=== PATIENT | male | born 1975 | race Caucasian/White ===

== ENCOUNTER 2022-02-16 09:49 | Emergency (ER) | payer OTHER, SELFPAY ==
[2022-02-16 10:01] VITALS: BP 152/98; PULSE 103; RESP 20; TEMP 36.4; O2SAT 99; BMI 27.9
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
[2022-02-16 11:45] LABS: MANUAL DIFF FLAG NO
[2022-02-16 11:47] LABS: Amphetamine Screen Urine Not Detected (Not Detect); Barbiturates, Urine Not Detected (Not Detect); Benzodiazepines Screen Urine Not Detected (Not Detect); Cannabinoid Screen Urine POSITIVE (Not Detect); Cocaine Screen Urine Not Detected (Not Detect); Fentanyl, urine Not Detected (Not Detect); Opiate Screen Urine Not Detected (Not Detect); Phencyclidine Screen Urine Not Detected (Not Detect)
[2022-02-16 11:51] LABS: COVID-19 Test Negative (Negative); IDNOW Serial# 16C4AD1C
[2022-02-16 11:51] LABS: Basophils Percent Auto 0.6 % (0-2); Eosinophils Absolute Auto 0.1 X10*3/uL (0.0-0.4); Eosinophils Percent Auto 0.8 % (0-4); Hematocrit 41.7 % (42.0-52.0); Hemoglobin 14.3 g/dl (14.0-18.0); Imm Gran Abs Auto 0.01 X10*3/uL (0.00-0.03); Imm Gran Pct Auto 0.1 % (0.0-0.4); Lymphocytes Absolute Auto 0.6 X10*3/uL (1.2-4.9); Lymphocytes Percent Auto 8.1 % (20-40); Mean Corpuscular HGB Conc 34.3 g/dl (31.0-36.0); Mean Corpuscular Hemoglobin 32.1 pg (27.0-33.0); Mean Corpuscular Volume 93.7 fL (80.0-98.0); Monocytes Absolute Auto 0.3 X10*3/uL (0.1-1.2); Monocytes Percent Auto 4.1 % (2-11); Neutrophils Absolute Auto 6.2 x10*3/uL (2.0-8.3); Neutrophils Percent Auto 86.3 % (45-73); Platelet Count 231 X10*3/uL (160-400); Red Blood Count 4.45 X10*6/uL (4.60-5.80); Red Cell Distribution Width 12.4 % (11.0-16.0); White Blood Count 7.2 X10*3/uL (4.8-10.8)
[2022-02-16 12:01] LABS: Ethanol < 10 mg/dL
[2022-02-16 12:04] LABS: Alanine Aminotransferase 16 U/L (0-40); Albumin Level 4.6 g/dL (3.5-5.0); Alkaline Phosphatase 74 U/L (39-117); Anion Gap 13 (12-20); Aspartate Amino Transferase 14 U/L (5-37); Bilirubin Total 0.8 mg/dL (0.0-1.0); Blood Urea Nitrogen 14 mg/dL (9-16); Carbon Dioxide 27 mmol/L (22-29); Chloride 102 mmol/L (96-108); Creatinine Clr Calc Pharmacy 103.3; Estimated Glomerular Filt Rate > 60; Glucose Random 133 mg/dL (60-115); Potassium 4.1 mmol/L (3.3-5.1); Sodium 138 mmol/L (135-145); Total Protein 7.4 g/dL (6.5-8.0)
[2022-02-16 12:07] LABS: Influenza A Negative (Negative); Influenza B2 Negative (Negative)
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
== END 2022-02-16 13:59 | disposition home or self-care (01) ==
PROVIDERS: Emergency Provider Emergency Medicine Emergency Medical Services
DX: F33.1 Major depressive disorder, recurrent, moderate (principal); F41.1 Generalized anxiety disorder; F43.0 Acute stress reaction; R45.851 Suicidal ideations; Z20.822 Contact with and (suspected) exposure to COVID-19; Z79.899 Other long term (current) drug therapy
CPT/HCPCS: 80053; 80307; 82077; 85025; 87502; 87635; 99284

== ENCOUNTER 2022-03-04 06:21 | Outpatient (REF) | payer OTHER, SELFPAY ==
--- NOTE | 2022-03-04 06:29 | ECG_ITS ---
Test Reason : medcations ck rhythm Blood Pressure : / mmHG Vent. Rate : 068 BPM Atrial Rate : 068 BPM P-R Int : 194 ms QRS Dur : 102 ms QT Int : 384 ms P-R-T Axes : 054 035 035 degrees QTc Int : 408 ms Normal sinus rhythm with sinus arrhythmia Normal ECG No previous ECGs available Referred By: Komal Fulton Electronically Signed By:JOSE ANGEL QUINTANA MD
[2022-03-04 07:45] LABS: Alanine Aminotransferase 19 U/L (0-40); Albumin Level 4.4 g/dL (3.5-5.0); Alkaline Phosphatase 72 U/L (39-117); Anion Gap 11 (12-20); Aspartate Amino Transferase 15 U/L (5-37); Bilirubin Total 0.5 mg/dL (0.0-1.0); Blood Urea Nitrogen 15 mg/dL (9-16); Calcium 10.3 mg/dL (8.4-10.2); Carbon Dioxide 28 mmol/L (22-29); Chloride 103 mmol/L (96-108); Estimated Glomerular Filt Rate > 60; Glucose Random 96 mg/dL (60-115); Potassium 4.7 mmol/L (3.3-5.1); Sodium 137 mmol/L (135-145)
[2022-03-04 08:06] LABS: Free T4 (Free Thyroxine) 0.89 ng/dL (0.71-1.85); Thyroid Stimulating Hormone 3.72 uIU/mL (0.32-4.0)
== END 2022-03-04 06:22 | disposition home or self-care (01) ==
LOC: HO.LAB 06:21
PROVIDERS: Visit Provider Nurse Practitioner Psychiatric/Mental Health
DX: F33.2 Major depressive disorder, recurrent severe without psychotic features (principal); F43.10 Post-traumatic stress disorder, unspecified; Z79.899 Other long term (current) drug therapy
CPT/HCPCS: 36415; 80053; 80178; 84439; 84443; 93005

== ENCOUNTER 2022-03-25 11:00 | Outpatient (RCR) | payer OTHER, SELFPAY ==
[2022-02-18 08:32] VITALS: BMI 27.9
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
--- NOTE | 2022-02-18 16:11 | PC.NURSE ---
Case opened in treatment team.
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
--- NOTE | 2022-02-19 15:45 | PC.NURSE ---
I spoke to pt and reviewed treatment plan. Discussed the need for a med provider. Pt has a therapist in private practice referred from [facility]. But he said he also had an intake at [facility] in [place] for a therapist. I agreed to put in a referral to [facility] for pt to obtain a med provider. He requested a letter emailed to him stating he has started the program for his work. I completed this and emailed it to him.
--- NOTE | 2022-02-22 11:24 | P.EN_ITS ---
Event Note Date of Service: 02/22/22 Event Note: completed [facility] paperwork, with start date 02/15/22, end date 03/12/22.
--- NOTE | 2022-02-22 11:24 | PM.EVENT ---
Event Note Date of Service: 02/22/22 Event Note: completed [facility] paperwork, with start date 02/15/22, end date 03/12/22.
--- NOTE | 2022-02-22 15:18 | P.PNPSP_ITS ---
Subjective Subjective Date of Service: 02/22/22 Reason For Visit: anxiety,depression Guardianship: No Medical Problems Affecting Mental Status: No Interim History: Reports no side effects from quetiapine or Lamictal. Continues with mood instability. Reports improved sleep. Denies SI/HI/SIB, no safety concerns. Willing to try increase in medication. Medication Compliance: Yes Side effects from medications: No Attending Groups: Yes Review of Systems Acute medical concerns: No Medical Review of Systems: unchanged Review of Systems Review of Systems Yes all other systems are reviewed and are negative Constitutional: Reports no additional constitutional complaints Mental Status Exam Mental Status Exam Narrative: NAD. No SI/HI/SIB. Continues with hypomanic presentation, including rapid pressured speech, distractibility, flight of ideas. Patient Appearance: Appropriate Patient Orientation: Person, Place, Time and Situation Level of Consciousness: Appropriate Patient Behavior: Appropriate, Cooperative and Good Eye Contact Mood Description: Depressed and Anxious Affect Description: Anxious and Expansive Patient Cognition Impaired: No Ability to Follow Directions: Good Speech Pattern: Clear, Coherent, Rapid, Excessive and Pressured Memory Description: Intact Hallucinations: None Delusions: Not Present Thought Process: Racing and Distracted Thought Content: positive for Intact, positive for Racing and positive for Tangential Depressive Symptoms: Increased Anxiety, Crying Spells, Loss of Int. in Activity, Feelings of Worthlessness, Hopelessness and Difficulty Concentrating Judgement: Fair Diagnostics Vital Signs (24Hr): BMI result Body Mass Index 27.9 Assessment & Plan Assessment & Plan (1) Major depressive disorder, recurrent severe without psychotic features: Status: Acute Code(s): F33.2 - Major depressive disorder, recurrent severe without psychotic features Assessment and Plan: Reports no side effects from quetiapine or Lamictal. Continues with mood instability. Reports improved sleep. Denies SI/HI/SIB, no safety concerns. States that he did not drink over the weekend, and did not craving alcohol. Does not see it as a problem at this time. Willing to try increase in medication. Asked for increase in Lamictal. It was explained that in order to prove event side effects, including Jr Jose Martin syndrome, Lamictal requires a slow titration upwards. Review titration schedule with him, he stated that he understood. Discussed increasing quetiapine at this time. He is willing to do this. (2) Post-traumatic stress disorder, unspecified: Status: Acute Code(s): F43.10 - Post-traumatic stress disorder, unspecified Plan 1. Continue with current [facility] plan of care. 2. Increase quetiapine to 50 mg daily at bedtime. 3. Follow-up as per protocol. Patient educated on: diagnosis, medication risk/benefits and therapeutic strategies Informed Consent: understands Reason for contiued partial hosp. stay Substantial Risk for: harm to self, inability to function, rapid decompensation and med/psych decompensation Certification I certify that partial hospital treatment is medically necessary due to the symptoms and problems resulting from the patient's mental illness and the failure to treat the patient at the partial hospital level of care would likely result in the patient requiring inpatient psychiatric care which could not be prevented at a less intensive level of care. I spent minutes with the patient and/or on the patient floor today, greater than?50% of which was spent counseling/coordinating care. Discharge Plan Discharge Attending provider: Robin Santana Medications: New lamotrigine [Lamictal] 25 mg tablet 25 mg PO DAILY 14 Days Qty: 14 0RF quetiapine 50 mg tablet 50 mg PO BEDTIME 14 Days Qty: 14 0RF Telehealth Telehealth Location of provider rendering services: practice address Location of patient: address on file Patient Identification confirmed using: Name, : Yes Telehealth method: voice only Patient verbally consented to treatment: Yes Patient verbally consented to billing insurance company: Yes Patient informed of any privacy concerns related to visit: Yes Minutes spent on Phone/Video with Pt.: 15
--- NOTE | 2022-02-25 11:39 | PC.NURSE ---
Marcel called stating he not feeling well today, reports feeling anxious and has been crying. Reports he thinks he is starting to get a sore throat related to the pollen outside. Patient wanted to increase his medication. Spoke to Komal Quiroz NP [facility] prescriber who stated patient could increase Seroquel to 75 mg at HS and she will check in with him on Tuesday. Patient agreed with the plan.
--- NOTE | 2022-02-26 14:45 | HO.PHPPROGNO ---
Subjective Subjective Date of Service: 02/26/22 Reason For Visit: anxiety,depression Guardianship: No Medical Problems Affecting Mental Status: No Interim History: Describes mood as I'm feeling worse, like I got to be doing something . Describes restlessness, feeling ?kind of down, but at the same time like I am [place] . Poor sleep, approximately 3 hours per night. Tearful, labile mood. No SI/HI/SIB, no safety concern. Medication Compliance: Yes Side effects from medications: No Attending Groups: Yes Review of Systems Acute medical concerns: No Medical Review of Systems: unchanged Review of Systems Review of Systems Yes all other systems are reviewed and are negative Constitutional: Reports no additional constitutional complaints Mental Status Exam Mental Status Exam Narrative: NAD. No SI/HI/SIB. Continues with hypomanic presentation, including rapid pressured speech, distractibility, flight of ideas. Patient Appearance: Appropriate Patient Orientation: Person, Place, Time and Situation Level of Consciousness: Appropriate Patient Behavior: Appropriate, Cooperative and Good Eye Contact Mood Description: Depressed, Anxious, Labile and Expansive Affect Description: Depressed, Anxious, Labile and Expansive Patient Cognition Impaired: No Ability to Follow Directions: Good Speech Pattern: Clear, Coherent, Rapid, Excessive and Pressured Memory Description: Intact Hallucinations: None Delusions: Not Present Thought Process: Racing and Distracted Thought Content: positive for Intact, positive for Racing, positive for Circumstantial and positive for Tangential Depressive Symptoms: Increased Anxiety, Insomnia, Increased Irritability, Difficulty Sleeping, Crying Spells, Loss of Int. in Activity, Hopelessness and Difficulty Concentrating Abnormal Motor Activity Signs and Symptoms: Restlessness Judgement: Fair Diagnostics Vital Signs (24Hr): BMI result Body Mass Index 27.9 Assessment & Plan Assessment & Plan (1) Major depressive disorder, recurrent severe without psychotic features: Status: Acute Code(s): F33.2 - Major depressive disorder, recurrent severe without psychotic features Assessment and Plan: Patient presents with labile affect, describes feeling ?worse?. Describes restlessness, mood lability. Tearful during encounter. No SI/HI, no safety concern. Patient has information including crisis number to call if begins to feel unsafe in any way. Discussed current medication regimen. Discussed possibility of switching to lithium. Discussion included indications, risks, both adverse effects serious and common, benefits, alternatives to treatment recommendations, and alternatives of his illness. He demonstrated in understanding, asked appropriate questions. He stated at this time he would like to try increase in Seroquel. He will consider as witch from lamictal to lithium if no improvement with increase Seroquel. He is tolerating titration of Lamictal well. (2) Post-traumatic stress disorder, unspecified: Status: Acute Code(s): F43.10 - Post-traumatic stress disorder, unspecified Plan 1. Increase Seroquel to 100 mg at bedtime scheduled. 2. Add Seroquel 25 mg b.i.d. p.r.n.. 3. Continue with Lamictal titration as scheduled. 4. Continue with current [facility] plan of care. 5. Follow-up as per protocol. Patient educated on: diagnosis, medication risk/benefits and therapeutic strategies Informed Consent: understands Reason for contiued partial hosp. stay Substantial Risk for: harm to self, inability to function, rapid decompensation and med/psych decompensation Certification I certify that partial hospital treatment is medically necessary due to the symptoms and problems resulting from the patient's mental illness and the failure to treat the patient at the partial hospital level of care would likely result in the patient requiring inpatient psychiatric care which could not be prevented at a less intensive level of care. I spent minutes with the patient and/or on the patient floor today, greater than?50% of which was spent counseling/coordinating care. Discharge Plan Discharge Attending provider: Robin Santana Medications: New lamotrigine [Lamictal] 25 mg tablet 25 mg PO DAILY 14 Days Qty: 14 0RF quetiapine [Seroquel] 100 mg tablet 100 mg PO BEDTIME Qty: 7 0RF quetiapine [Seroquel] 25 mg tablet 25 mg PO BID PRN (Reason: anxiety) Qty: 14 0RF Telehealth Telehealth Location of provider rendering services: practice address Location of patient: address on file Patient Identification confirmed using: Name, : Yes Telehealth method: video Patient verbally consented to treatment: Yes Patient verbally consented to billing insurance company: Yes Patient informed of any privacy concerns related to visit: Yes Minutes spent on Phone/Video with Pt.: 15
--- NOTE | 2022-03-02 09:43 | P.PNPSP_ITS ---
Subjective Subjective Date of Service: 03/02/22 Reason For Visit: anxiety,depression Guardianship: No Medical Problems Affecting Mental Status: No Interim History: Reports increased mood lability, although finding seroquel helpful. No SI reported. Asking for increased frequency of prn quetiapine, and considering starting lithium. Medication Compliance: Yes Side effects from medications: No Attending Groups: Yes Review of Systems Acute medical concerns: No Medical Review of Systems: unchanged Review of Systems Review of Systems Yes all other systems are reviewed and are negative Constitutional: Reports no additional constitutional complaints Mental Status Exam Mental Status Exam Narrative: NAD. No SI/HI/SIB. Continues with mood lability, tearful. Patient Appearance: Appropriate Patient Orientation: Person, Place, Time and Situation Level of Consciousness: Appropriate Patient Behavior: Appropriate, Cooperative and Good Eye Contact Mood Description: Depressed, Anxious and Labile Affect Description: Depressed, Anxious and Labile Patient Cognition Impaired: No Ability to Follow Directions: Good Speech Pattern: Clear, Coherent, Rapid and Excessive Memory Description: Intact Hallucinations: None Delusions: Not Present Thought Process: Racing and Distracted Thought Content: positive for Intact, positive for Racing and positive for Circumstantial Depressive Symptoms: Increased Anxiety, Insomnia, Increased Irritability, Difficulty Sleeping, Crying Spells, Loss of Int. in Activity, Hopelessness and Difficulty Concentrating Abnormal Motor Activity Signs and Symptoms: Restlessness Judgement: Fair Diagnostics Vital Signs (24Hr): BMI result Body Mass Index 27.9 Assessment & Plan Assessment & Plan (1) Major depressive disorder, recurrent severe without psychotic features: Status: Acute Code(s): F33.2 - Major depressive disorder, recurrent severe without psychotic features Assessment and Plan: Patient presents with increased mood instability, tearful throughout encounter. States he has found the increased seroquel dose helpful, but is really struggling . No SI, says feels safe, no safety concern at this time. States he has been pacing, anxious, having difficulty, feeling distressed. Also reports increased stress in home due to his father's early dementia. Discussed changing from lamictal to lithium. States he would like this, as well as increase in his prn frequency of seroquel. Also discussed possibility of coming to hospital for possible inpatient stay, due to his increased mood instability, increased anxiety/depression, feeling overwhelmed. I did explain that an inpatient stay would allow for closer observation and a faster medication titration. He said he would think about this, but is not ready to do so today. (2) Post-traumatic stress disorder, unspecified: Status: Acute Code(s): F43.10 - Post-traumatic stress disorder, unspecified Plan 1. Stop lamictal. 2. Start lithium 300mg at bedtime. 3. Continue seroquel 100mg at bedtime for now. 4. Increase prn seroquel to 25mg TID for anxiety. 5. Will follow-up with labs and EKG later in week. 6. Continue with current [facility] plan of care. 7. follow-up as per protocol. Patient educated on: diagnosis and therapeutic strategies Informed Consent: understands Reason for contiued partial hosp. stay Substantial Risk for: harm to self, inability to function, rapid decompensation and med/psych decompensation Certification I certify that partial hospital treatment is medically necessary due to the symptoms and problems resulting from the patient's mental illness and the failure to treat the patient at the partial hospital level of care would likely result in the patient requiring inpatient psychiatric care which could not be prevented at a less intensive level of care. I spent minutes with the patient and/or on the patient floor today, greater than?50% of which was spent counseling/coordinating care. Discharge Plan Discharge Attending provider: Robin Santana Medications: New quetiapine [Seroquel] 100 mg tablet 100 mg PO BEDTIME Qty: 7 0RF quetiapine 25 mg tablet 25 mg PO TID PRN (Reason: anxiety) Qty: 42 0RF lithium carbonate 300 mg capsule 300 mg PO BEDTIME Qty: 7 0RF Telehealth Telehealth Location of provider rendering services: practice address Location of patient: address on file Patient Identification confirmed using: Name, : Yes Telehealth method: video Patient verbally consented to treatment: Yes Patient verbally consented to billing insurance company: Yes Patient informed of any privacy concerns related to visit: Yes Minutes spent on Phone/Video with Pt.: 15
--- NOTE | 2022-03-02 12:42 | PC.NURSE ---
Patient requested help finding a PCP as he stated he did not have one. Called numerous providers listed on patient's insurance website. Called [facility] in [place] and per the practice patient is still a patient their and will not need a new patient appointment as he almost missed the cut off of 3 years. See Discharge plan for appointment information. Patient given appointment information as well.
--- NOTE | 2022-03-02 15:23 | PC.NURSE ---
I received messages with appt times and dates for pt to attend [facility] for therapy and med management. I called and left him a message informing him of this and asking him to pls calll.
--- NOTE | 2022-03-04 15:53 | P.PNPSP_ITS ---
Subjective Subjective Date of Service: 03/04/22 Reason For Visit: anxiety,depression Guardianship: No Medical Problems Affecting Mental Status: No Interim History: Continues with labile, irritable mood and affect. Describes mood as ?rapid, spinning in 1 direction real hard, not really stopping anything, although a little more manageable ?. Then stated ?I'm a mess ?. States Seroquel helping somewhat, but not enough. Asking for anxiety medication. No SI/HI reported, no safety concern. Labs reviewed, EKG reviewed. Medication Compliance: Yes Side effects from medications: No Attending Groups: Yes Review of Systems Acute medical concerns: No Medical Review of Systems: unchanged Review of Systems Review of Systems Yes all other systems are reviewed and are negative Constitutional: Reports no additional constitutional complaints Mental Status Exam Mental Status Exam Narrative: NAD. No SI/HI/SIB. Continues with mood lability, irritable. Patient Appearance: Appropriate Patient Orientation: Person, Place, Time and Situation Level of Consciousness: Appropriate Patient Behavior: Appropriate, Anxious and Good Eye Contact Mood Description: Depressed, Anxious, Labile and Angry (irritable) Affect Description: Depressed, Anxious, Labile and Angry (irritable) Patient Cognition Impaired: No Ability to Follow Directions: Good Speech Pattern: Clear, Coherent and Excessive Memory Description: Intact Hallucinations: None Delusions: Not Present Thought Process: Racing and Distracted Thought Content: positive for Intact and positive for Racing Depressive Symptoms: Increased Anxiety, Increased Irritability, Difficulty Sleeping, Crying Spells, Loss of Int. in Activity and Difficulty Concentrating Judgement: Fair Diagnostics Vital Signs (24Hr): BMI result Body Mass Index 27.9 Assessment & Plan Assessment & Plan (1) Major depressive disorder, recurrent severe without psychotic features: Status: Acute Code(s): F33.2 - Major depressive disorder, recurrent severe without psychotic features Assessment and Plan: Patient presents with anxious, irritable mood an affect. Dismissive at 1st, did not want to meet for long, as stated ?I am on my way to a job?. Discussed current labs, including TSH of 3.72. Discussed thyroid and lithium, with recommendation to resume Lamictal for mood stabilization, continue with lithium at this time until more stabilized, with a plan to eventually stop lithium altogether. Also discussed EKG results. Patient states that he was told at 1 time that he may need a sleep apnea machine. He was irritable, and states that he does not feel current medication regimen is working well. Asked several times for anti anxiety medications rather than Seroquel. We discussed adding Wang, he stated he was not interested at this time. He is agreeable at this time to resume Lamictal, and continue with Seroquel and lithium. No reports of SI/HI, no safety concerns at this time. Plan 1. Continue with current [facility] plan of care. 2. Lab results and EKG to be sent to PCP. 3. Start Lamictal 50 mg daily times 14 days, then proceed to 100 mg daily. 4. Continue lithium 300 mg at bedtime, continue Seroquel 100 mg at bedtime, 50 mg t.i.d. p.r.n. for anxiety. 5. Follow-up as per protocol. Patient educated on: diagnosis, medication risk/benefits and therapeutic strategies Informed Consent: understands Reason for contiued partial hosp. stay Substantial Risk for: inability to function, rapid decompensation and med/psych decompensation Certification I certify that partial hospital treatment is medically necessary due to the symptoms and problems resulting from the patient's mental illness and the failure to treat the patient at the partial hospital level of care would likely result in the patient requiring inpatient psychiatric care which could not be prevented at a less intensive level of care. I spent minutes with the patient and/or on the patient floor today, greater than?50% of which was spent counseling/coordinating care. Discharge Plan Discharge Attending provider: Robin Santana Additional Instructions: [facility]. Appointment with PCP Dr Thorne on Saturday March 19, 2022 at 0840. Office Number [phone]. [address] [place] [address]. In-person appt with therapist Valentine Dick ([phone]) at [facility] ([facility]) in [place], [place], at 12 noon on 03/12/22. In-person appt for psychiatric evaluation for med management with Mera Ibrahim at [facility] [facility] ([facility]) on 03/31/22 at 2pm. Medications: New lamotrigine [Lamictal] 25 mg tablet 50 mg PO DAILY 14 Days Qty: 28 0RF lamotrigine [Lamictal] 100 mg tablet 100 mg PO DAILY 30 Days Qty: 30 0RF Rx Instructions: When completed lamotrigine 50mg daily X 14 days, start lamotrigine 100mg daily. lithium carbonate 300 mg capsule 300 mg PO BEDTIME 30 Days Qty: 30 0RF quetiapine 100 mg tablet 100 mg PO BEDTIME 30 Days Qty: 30 0RF quetiapine 50 mg tablet 50 mg PO TID PRN (Reason: anxiety) Qty: 42 0RF Stand Alone Forms: Patient Portal Discharge page Telehealth Telehealth Location of provider rendering services: practice address Location of patient: address on file Patient Identification confirmed using: Name, : Yes Telehealth method: video Patient verbally consented to treatment: Yes Patient verbally consented to billing insurance company: Yes Patient informed of any privacy concerns related to visit: Yes Minutes spent on Phone/Video with Pt.: 15
--- NOTE | 2022-03-09 11:08 | PC.NURSE ---
Faxed Lab results and EKG results to patient's PCP Dr. Thorne's office. I called and left a message asking if Dr Thorne had received and reviewed the results and requested f/u regarding the results if needed. Rell called from Dr. Thorne's office and left a message stating that Dr Thorne did receive and reviewed the lab and EKG results for the patient. Patient has an upcoming appointment with Dr Thorne.
--- NOTE | 2022-03-09 11:15 | P.PNPSP_ITS ---
Subjective Subjective Date of Service: 03/09/22 Reason For Visit: anxiety,depression Medical Problems Affecting Mental Status: No Interim History: Describes mood as I'm alright, starting to feel better, but not stable yet No SI/HI/SIB reported, no safety concerns. States I still have trauma I need to work out, my PTSD, in addition to bipolar disorder . Asking for medication, as prn seroquel not working adequately for anxiety Medication Compliance: Yes Side effects from medications: No Attending Groups: Yes Review of Systems Acute medical concerns: No Medical Review of Systems: unchanged Review of Systems Review of Systems Yes all other systems are reviewed and are negative Constitutional: Reports no additional constitutional complaints Mental Status Exam Mental Status Exam Narrative: NAD. No SI/HI/SIB. No mood lability noted. Patient Appearance: Appropriate Patient Orientation: Person, Place, Time and Situation Level of Consciousness: Appropriate Patient Behavior: Appropriate, Cooperative and Good Eye Contact Mood Description: Depressed and Anxious Affect Description: Depressed and Anxious Patient Cognition Impaired: No Ability to Follow Directions: Good Speech Pattern: Clear, Appropriate and Coherent Memory Description: Intact Hallucinations: None Delusions: Not Present Thought Process: Intact Thought Content: positive for Intact Depressive Symptoms: Increased Anxiety, Increased Irritability, Difficulty Sleeping, Loss of Int. in Activity and Difficulty Concentrating Judgement: Fair Diagnostics Vital Signs (24Hr): BMI result Body Mass Index 27.9 Assessment & Plan Assessment & Plan (1) Major depressive disorder, recurrent severe without psychotic features: Status: Acute Code(s): F33.2 - Major depressive disorder, recurrent severe without psychotic features Assessment and Plan: Describes mood as I'm alright, starting to feel better, but not stable yet No SI/HI/SIB reported, no safety concerns. States I still have trauma I need to work out, my PTSD, in addition to bipolar disorder . States he now believes he does have bipolar disorder, as he feels he is improving with lithium, Lamictal, and Seroquel. Feels he is not ready to leave and go back to work, does not feel stabilized yet, although he does report feeling overall improvement. We discussed each medication in detail, provided education. (2) Post-traumatic stress disorder, unspecified: Status: Acute Code(s): F43.10 - Post-traumatic stress disorder, unspecified Assessment and Plan: Asking for medication, as prn seroquel not working adequately for anxiety r/t PTSD sx. Discussed trial of hydroxyzine. He is willing to try this. Plan 1. Continue with current [facility] plan of care. 2. Start hydroxyzine 25 mg TID p.r.n. for anxiety. 3. Continue with other medications as currently prescribed. 4. Follow-up as per protocol. Patient educated on: diagnosis, medication risk/benefits and therapeutic strategies Informed Consent: understands Reason for contiued partial hosp. stay Substantial Risk for: inability to function, rapid decompensation and med/psych decompensation Certification I certify that partial hospital treatment is medically necessary due to the symptoms and problems resulting from the patient's mental illness and the failure to treat the patient at the partial hospital level of care would likely result in the patient requiring inpatient psychiatric care which could not be prevented at a less intensive level of care. I spent minutes with the patient and/or on the patient floor today, greater than?50% of which was spent counseling/coordinating care. Discharge Plan Discharge Attending provider: Robin Santana Additional Instructions: [facility] Adult Medicine. Appointment with PCP Dr Thorne on Saturday March 19, 2022 at 0840. Office Number [phone]. [address] [place] [address]. In-person appt with therapist Valentine Dick ([phone]) at [facility] ([facility]) in [place], [place], at 12 noon on 03/12/22. In-person appt for psychiatric evaluation for med management with Mera Ibrahim at [facility] ([facility]) on 03/31/22 at 2pm. Medications: New lamotrigine [Lamictal] 25 mg tablet 50 mg PO DAILY 14 Days Qty: 28 0RF lamotrigine [Lamictal] 100 mg tablet 100 mg PO DAILY 30 Days Qty: 30 0RF Rx Instructions: When completed lamotrigine 50mg daily X 14 days, start lamotrigine 100mg daily. lithium carbonate 300 mg capsule 300 mg PO BEDTIME 30 Days Qty: 30 0RF quetiapine 100 mg tablet 100 mg PO BEDTIME 30 Days Qty: 30 0RF quetiapine 50 mg tablet 50 mg PO TID PRN (Reason: anxiety) Qty: 42 0RF hydroxyzine HCl 25 mg tablet 25 mg PO TID PRN (Reason: anxiety) Qty: 90 0RF Stand Alone Forms: Patient Portal Discharge page Telehealth Telehealth Location of provider rendering services: practice address Location of patient: address on file Patient Identification confirmed using: Name, : Yes Telehealth method: video Patient verbally consented to treatment: Yes Patient verbally consented to billing insurance company: Yes Patient informed of any privacy concerns related to visit: Yes Minutes spent on Phone/Video with Pt.: 15
--- NOTE | 2022-03-17 13:19 | HO.PHPPROGNO ---
Subjective Subjective Date of Service: 03/17/22 Reason For Visit: anxiety,depression Medical Problems Affecting Mental Status: No Interim History: Describes mood as ?hopeful?. States that mood has become more stabilized, improving. Less depressed, less labile. No SI/HI, no safety concern. Medication Compliance: Yes Side effects from medications: No Attending Groups: Yes Review of Systems Acute medical concerns: No Medical Review of Systems: unchanged Review of Systems Review of Systems Yes all other systems are reviewed and are negative Constitutional: Reports no additional constitutional complaints Mental Status Exam Mental Status Exam Narrative: NAD. No SI/HI/SIB. Patient Appearance: Appropriate Patient Orientation: Person, Place, Time and Situation Level of Consciousness: Appropriate Patient Behavior: Appropriate, Cooperative and Good Eye Contact Mood Description: Appropriate and Depressed (states is less in intensity) Affect Description: Depressed (appears improving) and Anxious (Appears to have lessened somewhat.) Patient Cognition Impaired: No Ability to Follow Directions: Good Speech Pattern: Clear, Appropriate, Coherent and Excessive Memory Description: Intact Hallucinations: None Delusions: Not Present Thought Process: Intact Thought Content: positive for Intact Depressive Symptoms: Increased Anxiety, Loss of Int. in Activity and Difficulty Concentrating Judgement: Fair Diagnostics Vital Signs (24Hr): BMI result Body Mass Index 27.9 Assessment & Plan Assessment & Plan (1) Major depressive disorder, recurrent severe without psychotic features: Status: Acute Code(s): F33.2 - Major depressive disorder, recurrent severe without psychotic features Assessment and Plan: Reports that he feels hopeful, about to increased dose of Lamictal in 2 days. Reports no side effects. States that he feels the p.r.n. quetiapine during the day is too sedating, but would prefer increase in hydroxyzine dose. Also reports less mood lability, but does continue somewhat. Interested in lithium increased at this time. We reviewed current medication regimen, including side effects, alternatives, benefits. He would like increase in lithium at this time, until mood is more stable. He plans to follow-up with his outpatient provider, and we discussed possibility that as Lamictal does reach his optimal level, he may be able at that time to lower lithium or possibly discontinue it altogether. We discussed obtaining lithium level in approximately 5 days. Lab slip completed. (2) Post-traumatic stress disorder, unspecified: Status: Acute Code(s): F43.10 - Post-traumatic stress disorder, unspecified (3) Substance use disorder: Status: Acute Code(s): F19.90 - Other psychoactive substance use, unspecified, uncomplicated Assessment and Plan: Patient continues abstinence from substances such as alcohol/opiate/cannabis. Reports he is finding this immensely helpful. Plan 1. Continue with current [facility] plan of care. 2. Increase hydroxyzine to 50 mg t.i.d. p.r.n. for anxiety. 3. Increase lithium to 600 mg daily at bedtime. 4. Will keep p.r.n. quetiapine prescription in place for now, although patient is not utilizing it. 5. Obtain lithium level Tuesday or Tuesday. 6. Follow-up as per protocol. Patient educated on: diagnosis, medication risk/benefits, substance abuse and therapeutic strategies Informed Consent: understands Reason for contiued partial hosp. stay Substantial Risk for: inability to function, rapid decompensation and med/psych decompensation Certification I certify that partial hospital treatment is medically necessary due to the symptoms and problems resulting from the patient's mental illness and the failure to treat the patient at the partial hospital level of care would likely result in the patient requiring inpatient psychiatric care which could not be prevented at a less intensive level of care. I spent minutes with the patient and/or on the patient floor today, greater than?50% of which was spent counseling/coordinating care. Discharge Plan Discharge Attending provider: Robin Santana Additional Instructions: [facility] Adult Medicine. Appointment with PCP Dr Thorne on Saturday March 19, 2022 at 0840. Office Number [phone]. [address] [place] [address]. In-person appt with therapist Valentine Dick ([phone]) at [facility] ([facility]) in [place], [place], at 12 noon on 03/12/22. In-person appt for psychiatric evaluation for med management with Mera Ibrahim at [facility] ([facility]) on 03/31/22 at 2pm. Medications: New lamotrigine [Lamictal] 25 mg tablet 50 mg PO DAILY 14 Days Qty: 28 0RF lamotrigine [Lamictal] 100 mg tablet 100 mg PO DAILY 30 Days Qty: 30 0RF Rx Instructions: When completed lamotrigine 50mg daily X 14 days, start lamotrigine 100mg daily. quetiapine 100 mg tablet 100 mg PO BEDTIME 30 Days Qty: 30 0RF quetiapine 50 mg tablet 50 mg PO TID PRN (Reason: anxiety) Qty: 90 0RF hydroxyzine HCl 50 mg tablet 50 mg PO TID PRN (Reason: anxiety) 30 Days Qty: 90 0RF lithium carbonate 600 mg capsule 600 mg PO BEDTIME 30 Days Qty: 30 0RF Stand Alone Forms: Patient Portal Discharge page Telehealth Telehealth Location of provider rendering services: practice address Location of patient: address on file Patient Identification confirmed using: Name, : Yes Telehealth method: video Patient verbally consented to treatment: Yes Patient verbally consented to billing insurance company: Yes Patient informed of any privacy concerns related to visit: Yes Minutes spent on Phone/Video with Pt.: 15
--- NOTE | 2022-03-25 13:22 | PC.NURSE ---
Patient scheduled to discharge from the program today. Patient stated he feels nervous regarding discharge. Stated he is forming routines which is helpful. Denied SI. Patient has the crisis number if needed. Reviewed patient medications with patient. He reports taking medications as prescribed.
--- NOTE | 2022-03-25 14:30 | P.PNPSP_ITS ---
Subjective Subjective Date of Service: 03/25/22 Reason For Visit: anxiety,depression Medical Problems Affecting Mental Status: No Interim History: Reports ?I am well ?. Continues with some anxiety, mood lability, but feels overall improved. Had some slight tremors 1 started with lithium, reports that these have subsided completely. Feels ready to leave partial, feels more stable. Denies SI/HI, no safety concerns. Has follow-up appointments next week with several outpatient providers. Return to work note provided. Medication Compliance: Yes Side effects from medications: No Attending Groups: Yes Review of Systems Acute medical concerns: No Medical Review of Systems: unchanged Review of Systems Review of Systems Yes all other systems are reviewed and are negative Constitutional: Reports no additional constitutional complaints Mental Status Exam Mental Status Exam Narrative: NAD. No SI/HI/SIB. Patient Appearance: Appropriate Patient Orientation: Person, Place, Time and Situation Level of Consciousness: Appropriate Patient Behavior: Appropriate, Cooperative and Good Eye Contact Mood Description: Appropriate Affect Description: Anxious (Appears to have lessened considerably. ) and Labile (Somewhat labile at times, although much improved.) Patient Cognition Impaired: No Ability to Follow Directions: Good Speech Pattern: Clear, Appropriate, Coherent and Rapid Memory Description: Intact Hallucinations: None Delusions: Not Present Thought Process: Intact Thought Content: positive for Intact Depressive Symptoms: Increased Anxiety Judgement: Good Diagnostics Vital Signs (24Hr): BMI result Body Mass Index 27.9 Assessment & Plan Assessment & Plan (1) Major depressive disorder, recurrent severe without psychotic features: Status: Acute Code(s): F33.2 - Major depressive disorder, recurrent severe without psychotic features Assessment and Plan: Patient reports continues with some dysphoric mood, anxiety, lability at times, although much improved. We discussed his current medication regimen. Discussed holding off on any further medication changes, as today's is last day. He has appointments with primary care provider and psychiatric providers next week. Discussed obtaining a lithium level next week, and presenting to new outpatient psychiatric provider. He was in agreement with this plan. Denies any thoughts of harm to self or others, no SI/HI, no safety concerns. Reports that PHP program has been helpful, able to express hope for the future. (2) Post-traumatic stress disorder, unspecified: Status: Acute Code(s): F43.10 - Post-traumatic stress disorder, unspecified (3) Substance use disorder: Status: Acute Code(s): F19.90 - Other psychoactive substance use, unspecified, uncomplicated Assessment and Plan: Continues to maintain abstinence, work towards optimal recovery. No concerns expressed or noted at this time. Plan 1. Patient appears stable for discharge from [facility] at this time. 2. Patient to follow-up with outpatient providers going forward. Patient educated on: diagnosis, medication risk/benefits, substance abuse and therapeutic strategies Informed Consent: understands Reason for contiued partial hosp. stay Substantial Risk for: stable for discharge Certification I certify that partial hospital treatment is medically necessary due to the symptoms and problems resulting from the patient's mental illness and the failure to treat the patient at the partial hospital level of care would likely result in the patient requiring inpatient psychiatric care which could not be prevented at a less intensive level of care. I spent minutes with the patient and/or on the patient floor today, greater than?50% of which was spent counseling/coordinating care. Discharge Plan Discharge Attending provider: Robin Santana Additional Instructions: [facility] Adult Medicine. Appointment with PCP Dr Thorne on Saturday March 19, 2022 at 0840. Office Number [phone]. [address], [place]. In-person appt with therapist Valentine Dick ([phone]) at [facility] [place] [facility] in [place], [place], at 12 noon on 03/12/22. In-person appt for psychiatric evaluation for med management with Mera Ibrahim at [facility] ([facility]) on 03/31/22 at 2pm. Medications: New lamotrigine [Lamictal] 25 mg tablet 50 mg PO DAILY 14 Days Qty: 28 0RF lamotrigine [Lamictal] 100 mg tablet 100 mg PO DAILY 30 Days Qty: 30 0RF Rx Instructions: When completed lamotrigine 50mg daily X 14 days, start lamotrigine 100mg daily. quetiapine 100 mg tablet 100 mg PO BEDTIME 30 Days Qty: 30 0RF hydroxyzine HCl 50 mg tablet 50 mg PO TID PRN (Reason: anxiety) 30 Days Qty: 90 0RF lithium carbonate 600 mg capsule 600 mg PO BEDTIME 30 Days Qty: 30 0RF Stand Alone Forms: Patient Portal Discharge page Telehealth Telehealth Location of provider rendering services: practice address Location of patient: address on file Patient Identification confirmed using: Name, : Yes Telehealth method: video Patient verbally consented to treatment: Yes Patient verbally consented to billing insurance company: Yes Patient informed of any privacy concerns related to visit: Yes Minutes spent on Phone/Video with Pt.: 15
== END 2022-03-25 23:59 | disposition home or self-care (01) ==
LOC: HO.PHPA 11:00
PROVIDERS: Visit Provider Psychiatry & Neurology Psychiatry
DX: F33.2 Major depressive disorder, recurrent severe without psychotic features (principal); F43.10 Post-traumatic stress disorder, unspecified; F19.90 Other psychoactive substance use, unspecified, uncomplicated; Z79.899 Other long term (current) drug therapy
CPT/HCPCS: 90791; 90853